=== PATIENT | female | born 1960 | race Caucasian/White ===

== ENCOUNTER → 2016-07-12 | Outpatient (CLI) | payer OTHER ==
--- NOTE | 2016-07-13 09:10 | MM ---
Reason for exam: screening (asymptomatic). Last mammogram was performed 9 months ago. History: Patient is postmenopausal. Family history of breast cancer in paternal grandmother at age 65. Physical Findings: A clinical breast exam by your physician is recommended on an annual basis and results should be correlated with mammographic findings. MG Screening Mammo w CAD Bilateral CC and MLO view(s) were taken. Prior study comparison: February 03, 2014, bilateral MG screening mammo w CAD. The breast tissue is heterogeneously dense. This may lower the sensitivity of mammography. There is no discrete abnormality. ASSESSMENT: Negative, BI-RAD 1 RECOMMENDATION: Routine screening mammogram of both breasts in 1 year.
== END | disposition home or self-care (01) ==
LOC: RADMAMWWP 11:01
PROVIDERS: ATTEND Obstetrics & Gynecology
DX: Z12.31 Encounter for screening mammogram for malignant neoplasm of breast (principal); Z80.3 Family history of malignant neoplasm of breast

== ENCOUNTER → 2016-08-09 | Outpatient (CLI) | payer OTHER ==
--- NOTE | 2016-08-09 15:51 | BD ---
EXAMINATION TYPE: MG DEXA axial skeleton. DATE OF EXAM: 08/09/2016 1:58 PM COMPARISON: NONE CLINICAL HISTORY: Height: 5 FT 1 1/2 IN Weight: 124 FRAX RISK QUESTIONS: Alcohol (3 or more units per day): YES Family History (Parent hip fracture): NO Glucocorticoids (More than 3mos): NO (Ex: prednisone, prednisolone, methylprednisolone, dexamethasone, and hydrocortisone). History of Fracture in Adulthood: NO Secondary Osteoporosis: 1. Type 1 Diabetes: NO 2. Hyperthyroidism: NO 3. Menopause before 45: YES 4. Malnutrition: NO 5. Chronic liver disease: NO Rheumatoid Arthritis: YES Current Tobacco Use: NO RISK FACTORS HISTORY OF: Drink Alcohol: SOCIAL Active: YES Postmenopausal woman: PARTIAL HYST AGE 45 WITH SYMPTOMS OF MENOPAUSE MEDICATIONS: Additional Medications: PLAQUENEL,CYMBALTA,ADIVAN Additional History: SJOGRENS DISEASE,FYBROMYALGIA EXAM MEASUREMENTS: Bone mineral densitometry was performed using the [employer] System. Bone mineral density as measured about the Lumbar spine is: ----- L1-L4(G/cm2): 1.104 T Score Values are as follows: ----- L2: -1.4 ----- L3: -0.4 ----- L4: -0.1 ----- L1-L4: -0.6 Bone mineral density has: Decreased -3.7% since study of: 2013 Bone mineral density about the R hip (g/cm2): 0.810 Bone mineral density about the L hip (g/cm2): 0.805 T Score values are as follows: -----R Neck: -1.6 -----L Neck: -1.7 -----R Intertrochanter: -0.8 -----L Intertrochanter: -0.7 Bone mineral density has: Increased 1.4% since study of: 2013 IMPRESSION: Osteopenia (T Score between -2.5 and -1 as noted by T score values There is slightly increased risk of fracture and the patient may be considered for treatment. Re-Screen 1-2 years. L2 AND BEN HIPS NOTE: T-SCORE=SD OF THE YOUNG ADULT MEAN.
== END ==
LOC: RADBDWWP 13:40
PROVIDERS: ATTEND Family Medicine
DX: M85.851 Other specified disorders of bone density and structure, right thigh (principal); M85.852 Other specified disorders of bone density and structure, left thigh; M85.88 Other specified disorders of bone density and structure, other site
CPT/HCPCS: 77080

== ENCOUNTER → 2017-07-17 | Outpatient (CLI) | payer OTHER ==
--- NOTE | 2017-07-17 18:02 | XR ---
Panorex HISTORY: K 11.5 Single Panorex view is submitted. Multiple teeth are no longer present. No fracture or dislocation. No radiopaque calculus. Maxillary s inuses show no definite inflammatory change. No definite periapical abscess. Some lucency noted adjac ent to the inferior molar posteriorly on the right. IMPRESSION: No definite calculus. CT scan may be of benefit.
--- NOTE | 2017-07-17 18:04 | XR ---
Mandible HISTORY: Ruth's duct calculus, Left-sided parotid gland removal 5 views of the mandible Bone mineralization is maintained. No fracture or dislocation. No definite abnormal calculus. Bone mi neralization is slightly reduced. IMPRESSION: No radiopaque calculus evident, consider CT.
== END | disposition home or self-care (01) ==
LOC: RADXRMAIN 13:43
PROVIDERS: ATTEND Otolaryngology
DX: K11.5 Sialolithiasis (principal)
CPT/HCPCS: 70110; 70355

== ENCOUNTER → 2017-11-29 | Outpatient (CLI) | payer BC ==
--- NOTE | 2017-12-06 15:49 | MM ---
Reason for exam: screening (asymptomatic). Last mammogram was performed 1 year and 5 months ago. History: Patient is postmenopausal. Family history of breast cancer in paternal grandmother at age 65. MG 3D Screening Mammo W/Cad Bilateral CC and MLO view(s) were taken. Prior study comparison: July 12, 2016, bilateral MG screening mammo w CAD. September 29, 2015, right breast MG 3d diag mammo w/cad RT. March 16, 2015, bilateral MG 3d diag mammo w/cad BEN. The breast tissue is heterogeneously dense. This may lower the sensitivity of mammography. No suspicious abnormality. No significant changes when compared with prior studies. ASSESSMENT: Negative, BI-RAD 1 RECOMMENDATION: Routine screening mammogram of both breasts in 1 year.
== END | disposition home or self-care (01) ==
LOC: RADMAMWWP 13:13
PROVIDERS: ATTEND Obstetrics & Gynecology
DX: Z12.31 Encounter for screening mammogram for malignant neoplasm of breast (principal)
CPT/HCPCS: 77063; 77067

== ENCOUNTER → 2019-01-17 | Outpatient (CLI) | payer OTHER ==
--- NOTE | 2019-01-19 13:20 | BD ---
EXAMINATION TYPE: Axial Bone Density DATE OF EXAM: 01/17/2019 COMPARISON: 08.09.2016 CLINICAL HISTORY: 58 YR OLD FEMALE....ICD-10 CODE: N95.1, M89.9 OSTEOPENIA Height: 62.2 Weight: 160 FRAX RISK QUESTIONS: Rheumatoid Arthritis: YES RISK FACTORS HISTORY OF: Postmenopausal woman: HYST AT AGE 45 YRS OLD, HORMONALLY AT 52 YRS OLD Poor Health: SHOGUNS DISEASE, FIBROMYALGIA Hyperparathyroidism: NO Adrenal Insufficiency: NO MEDICATIONS: Additional Medications: BP MEDS, CYMBALTA, STATIN FOR CHOLESTEROL, PAIN MEDS, Additional History: FIBROMYALGIA, SHOGREN DISEASE, HYPERTENSION, CHRONIC PAIN EXAM MEASUREMENTS: Bone mineral densitometry was performed using the [employer] System. Bone mineral density as measured about the Lumbar spine is: ----- L1-L4(G/cm2): 0.970 T Score Values are as follows: ----- L1: -1.4 ----- L2: -2.4 ----- L3: -1.2 ----- L4: -2.1 ----- L1-L4: -1.8 Bone mineral density has: Decreased -14.2% since study of: 08.09.2016 Bone mineral density about the R hip (g/cm2): 0.845 Bone mineral density about the L hip (g/cm2): 0.832 T Score values are as follows: -----R Neck: -1.6 -----L Neck: -1.8 -----R Total: -1.3 -----L Total: -1.4 Bone mineral density has: Decreased -1.5% since study of: 08.09.2016 FRAX%s: THERE IS A 10.5% CHANCE FOR A MAJOR OSTEOPOROTIC FX AND A 1.2% FOR HIP....PROBABILITY FOR F X IN 10 YRS TIME IMPRESSION: Osteopenia (T Score between -2.5 and -1). There is slightly increased risk of fracture and the patient may be considered for treatment. Re-Screen 2-5 years. NOTE: T-SCORE=SD OF THE YOUNG ADULT MEAN.
--- NOTE | 2019-01-20 12:34 | MM ---
Reason for exam: screening (asymptomatic). Last mammogram was performed 1 year and 2 months ago. History: Patient is postmenopausal. Family history of breast cancer in paternal grandmother at age 65. Physical Findings: A clinical breast exam by your physician is recommended on an annual basis and results should be correlated with mammographic findings. MG 3D Screening Mammo W/Cad Bilateral CC and MLO view(s) were taken. Prior study comparison: November 29, 2017, bilateral MG 3d screening mammo w/cad. July 12, 2016, bilateral MG screening mammo w CAD. The breast tissue is heterogeneously dense. This may lower the sensitivity of mammography. No suspicious abnormality. ASSESSMENT: Negative, BI-RAD 1 RECOMMENDATION: Routine screening mammogram of both breasts in 1 year.
== END | disposition home or self-care (01) ==
LOC: RADMAMWWP 12:12
PROVIDERS: ATTEND Obstetrics & Gynecology
DX: Z12.31 Encounter for screening mammogram for malignant neoplasm of breast (principal); M85.80 Other specified disorders of bone density and structure, unspecified site
CPT/HCPCS: 77063; 77067; 77080

== ENCOUNTER → 2020-01-17 | Outpatient (CLI) | payer OTHER ==
--- NOTE | 2020-01-18 01:11 | MR ---
EXAMINATION TYPE: MR ankle LT wo/w con DATE OF EXAM: 01/17/2020 COMPARISON: None HISTORY: Left ankle lump on anterior portion, marked area CONTRAST: Standard multiplanar, multisequence MRI departmental protocol utilizing 7 mL intravenous Gadavist chino olinium contrast. Multiplanar multiecho imaging of the left ankle was performed without and with IV contrast. The Achilles tendon is intact. Plantar fascia is intact. The medial and lateral flexor tendons of the ankle appear intact. Subtalar joint is normal. Ankle mortise is anatomic. Collateral ligaments appea r intact. I see no bony destructive process. There is no evidence of a fracture. There is a marker pl aced over the anterior ankle in the area of concern. There is slight increased subcutaneous fluid sig nal in the area of concern. No discrete mass seen. This measures 20 x 8 mm. There is rounded 11 mm ar ea of fluid signal at the anterior aspect of the talonavicular joint that is consistent with small sy novial cyst. This is adjacent to the talus. IMPRESSION: Small synovial cyst of the anterior talonavicular joint. Subcutaneous edema in the area of concern an terior to the talonavicular joint. No fracture. No evidence of ligamentous tear.
== END | disposition home or self-care (01) ==
LOC: RADMRIMAIN 10:32
PROVIDERS: ATTEND Podiatrist Foot & Ankle Surgery
DX: M71.372 Other bursal cyst, left ankle and foot (principal); M25.472 Effusion, left ankle
CPT/HCPCS: 73723; A9585

== ENCOUNTER → 2021-08-22 | Outpatient (CLI) | payer OTHER ==
--- NOTE | 2021-08-22 09:45 | BD ---
EXAMINATION TYPE: Axial Bone Density DATE OF EXAM: 08/22/2021 COMPARISON: 01.17.2019 CLINICAL HISTORY: 60 years year old Female. ICD-10 CODE: M85.88 disorder of bone Height: 61.8 Weight: 155 FRAX RISK QUESTIONS: Glucocorticoids (More than 3mos): ON AND OFF ONLY (Ex: prednisone, prednisolone, methylprednisolone, dexamethasone, and hydrocortisone). 5. Chronic liver disease: YES, PBC Rheumatoid Arthritis: YES RISK FACTORS HISTORY OF: Postmenopausal woman: 52 YRS Poor Health: CHRONIC PAIN Hyperparathyroidism: NO Adrenal Insufficiency: NO MEDICATIONS: Prednisone or other steroids: ON AND OFF FOR PAIN AND ILLNESS Additional Medications: BP MEDS, CYMBALTA, CHOLESTEROL MEDS, PAIN MEDS, PREDNISONE, Additional History: SHOGUNS DISEASE, FIBROMYALGIA, CHRONIC PAIN, HYPERTENSION, LIVER DISEASE PBC, EXAM MEASUREMENTS: Bone mineral densitometry was performed using the [employer] System. Bone mineral density as measured about the Lumbar spine is: ----- L1-L4(G/cm2): 0.958 T Score Values are as follows: ----- L1: -1.8 ----- L2: -2.7 ----- L3: -1.2 ----- L4: -2.3 ----- L1-L4: -1.9 Bone mineral density has: Decreased -1.4% since study of: 01.17.2019 Bone mineral density about the R hip (g/cm2): 0.794 Bone mineral density about the L hip (g/cm2): 0.814 T Score values are as follows: -----R Neck: -2.0 -----L Neck: -2.0 -----R Total: -1.7 -----L Total: -1.5 Bone mineral density has: Decreased -4.2% since study of: 01.17.2019 FRAX%s: The graph provided illustrates a 12.5% chance for a major osteoporotic fx and a 1.8% chance f or the hips probability for fx in 10 years time. IMPRESSION: Osteopenia NOTE: T-SCORE=SD OF THE YOUNG ADULT MEAN.
--- NOTE | 2021-08-23 10:08 | MM ---
Reason for exam: screening (asymptomatic). Last mammogram was performed 2 years and 7 months ago. History: Patient is postmenopausal. Family history of breast cancer in paternal grandmother at age 65. Physical Findings: A clinical breast exam by your physician is recommended on an annual basis and results should be correlated with mammographic findings. MG Screening Mammo w CAD Bilateral CC and MLO view(s) were taken. Prior study comparison: January 17, 2019, bilateral MG 3d screening mammo w/cad. November 29, 2017, bilateral MG 3d screening mammo w/cad. The breast tissue is heterogeneously dense. This may lower the sensitivity of mammography. There are benign appearing round calcifications bilaterally. There is no discrete abnormality. ASSESSMENT: Benign, BI-RAD 2 RECOMMENDATION: Routine screening mammogram of both breasts in 1 year.
== END | disposition home or self-care (01) ==
LOC: RADBDWWP 08:36
PROVIDERS: ATTEND Obstetrics & Gynecology
DX: Z12.31 Encounter for screening mammogram for malignant neoplasm of breast (principal); M85.88 Other specified disorders of bone density and structure, other site; Z80.3 Family history of malignant neoplasm of breast; Z78.0 Asymptomatic menopausal state
CPT/HCPCS: 77067; 77080

== ENCOUNTER 2022-08-15 14:15 | Emergency (ER) | payer OTHER ==
[2022-08-15 14:21] VITALS: TEMP 98.8
[2022-08-15] MEDS ORDERED: SODIUM CHLORIDE 0.9% 1,000 ML IV STA (15:44)
[2022-08-15] MEDS ORDERED: DICYCLOMINE 10 MG/ML 2 ML AMP IM STA (15:44)
[2022-08-15] MEDS ORDERED: PANTOPRAZOLE 40 MG/10 ML VIAL IVP STA (15:44)
--- NOTE | 2022-08-15 15:47 | ED ---
General Adult HPI - General Chief complaint: Abdominal Pain Stated complaint: GI Bleed Time Seen by Provider: 08/15/22 15:19 Source: patient, RN notes reviewed Mode of arrival: ambulatory Limitations: no limitations - History of Present Illness Initial comments: Patient is a pleasant [age]-year-old female presenting to the emergency department with concerns with abdominal discomfort. Onset of symptoms was last night. Patient did have nausea and vomiting however that has resolved. Patient did have diarrhea following this. Patient has had several episodes of bright red blood per rectum since that time, at least 2 or 3. Patient still has left s ided abdominal discomfort. No urinary symptoms. No fever. Patient did have a history of similar symptoms previously approximately 2 years ago associated with problems with her jejunum. Patient does have history of liver problems. - Related Data Home Medications Medication Instructions Recorded Confirmed Atorvastatin [Lipitor] 10 mg PO HS 06/24/21 08/15/22 DULoxetine HCL [Cymbalta] 30 mg PO BID 06/24/21 08/15/22 Metoprolol Tartrate [Lopressor] 25 mg PO BID 06/24/21 08/15/22 amLODIPine [Norvasc] 5 mg PO HS 06/24/21 08/15/22 ursodioL [Dee Forte] 500 mg PO BID 06/24/21 08/15/22 Erythromycin Ophth Oint (1 gm) 1 applic BOTH EYES BID 08/15/22 08/15/22 [Ilotycin Ophth Oint (1 gm)] diphenhydrAMINE HCL [Benadryl] 25 mg PO HS 08/15/22 08/15/22 Allergies Allergy/AdvReac Type Severity Reaction Status Date / Time Sulfa (Sulfonamide Allergy Red/Itching Verified 08/15/22 17:01 Antibiotics) sulfamethoxazole Allergy Red/Itching Verified 08/15/22 17:01 [From Bactrim] trimethoprim [From Bactrim] Allergy Red/Itching Verified 08/15/22 17:01 adhesive AdvReac Swelling Verified 08/15/22 17:01 Review of Systems ROS Statement: Those systems with pertinent positive or pertinent negative responses have been documented in the HPI. ROS Other: All systems not noted in ROS Statement are negative. Constitutional: Denies: fever Eyes: Denies: eye pain ENT: Denies: ear pain Respiratory: Denies: dyspnea Cardiovascular: Denies: chest pain Endocrine: Denies: fatigue Gastrointestinal: Reports: as per HPI, abdominal pain, nausea, vomiting, diarrhea, hematochezia Genitourinary: Denies: dysuria Musculoskeletal: Denies: back pain Skin: Denies: rash Neurological: Denies: weakness Past Medical History Past Medical History: Fibromyalgia, Hyperlipidemia, Liver Disease Additional Past Medical History / Comment(s): Recent issues with kidney function, liver disease A1PBC/autoimmune disease, sjogren's syndrome, elevated heart rate, past migraines. History of Any Multi-Drug Resistant Organisms: None Reported Past Surgical History: Cholecystectomy, Hysterectomy, Tonsillectomy, Tubal Ligation Additional Past Surgical History / Comment(s): Tubal ligation then reversal, paratid artery removal d/t inflammation, colonoscopy, rectocele. eye lids Past Anesthesia/Blood Transfusion Reactions: Postoperative Nausea & Vomiting (PONV) Past Psychological History: Depression Smoking Status: Never smoker Past Alcohol Use History: None Reported Past Drug Use History: None Reported - Past Family History Mother Family Medical History: Diabetes Mellitus, Hypertension Additional Family Medical History / Comment(s): Paratid gland issue Father Additional Family Medical History / Comment(s): Father had bleeding ulcer with surgical repair. General Exam Limitations: no limitations General appearance: alert, in no apparent distress Head exam: Present: normocephalic Eye exam: Present: normal appearance Neck exam: Present: normal inspection Respiratory exam: Present: normal lung sounds bilaterally Cardiovascular Exam: Present: regular rate, normal rhythm Expanded Peripheral pulses: 2+: Posterior Tibialis (R), Posterior Tibialis (L), Dorsalis Pedis (R), Dorsalis Pedis (L) GI/Abdominal exam: Present: soft. Absent: distended, tenderness, guarding, rebound, rigid Extremities exam: Present: normal inspection Neurological exam: Present: alert Psychiatric exam: Present: normal affect, normal mood Skin exam: Present: normal color Course Vital Signs 08/15/22 08/15/22 08/15/22 14:16 15:36 16:00 Temperature 98.8 F Pulse Rate 89 86 64 Respiratory 20 16 16 Rate Blood Pressure 129/90 143/95 125/94 O2 Sat by Pulse 96 98 97 Oximetry Medical Decision Making - Medical Decision Making Was pt. sent in by a medical professional or institution (, PA, [employer], urgent care, hospital, or halfway...) When possible be specific @ -No Did you speak to anyone other than the patient for history (EMS, parent, family, police, friend...)? What history was obtained from this source @ - is present and helps confirm history including history of previous event Did you review nursing and triage notes (agree or disagree)? Why? @ -I reviewed and agree with nursing and triage notes Were old charts reviewed (outside hosp., previous admission, EMS record, old EKG, old radiological studies, urgent care reports/EKG's, halfway records)? Report findings @ -No old charts were reviewed Differential Diagnosis (chest pain, altered mental status, abdominal pain women, abdominal pain men, vaginal bleeding, weakness, fever, dyspnea, syncope, headache, dizziness, GI bleed, back pain, seizure, CVA, palpatations, mental health)? @ -Differential Abdominal Pain Women: Appendicitis, Cholecystitis, diverticulosis, ischemic bowel, pancreatitis, hepatitis, UTI, gastroenteritis, AAA, incarcerated hernia, bowel obstruction, constipation, inflammatory bowel, hepatitis, peptic ulcer disease, splenic infarction, perforated viscus, vulvitis, ovarian torsion, PID, kidney stone, placenta abruption, this is not meant to be an all-inclusive list EKG interpreted by me (3pts min.). @ -As above X-rays interpreted by me (1pt min.). @ -None done CT interpreted by me (1pt min.). @ -Report reviewed U/S interpreted by me (1pt. min.). @ -None done What testing was considered but not performed or refused? (CT, X-rays, U/S, labs)? Why? @ -None What meds were considered but not given or refused? Why? @ -Considered further pain medication however patient does not feel necessary Did you discuss the management of the patient with other professionals (professionals i.e. , PA, [employer], lab, RT, psych nurse, high school social studies teacher, hvac technician residential, teacher, optics technical officer, porter sample case)? Give summary @ -No Was smoking cessation discussed for >3mins.? @ -No Was critical care preformed (if so, how long)? @ -No Were there social determinants of health that impacted care today? How? (Homelessness, low income, unemployed, alcoholism, drug addiction, transportation, low edu. Level, literacy, decrease access to med. care, longterm, rehab)? @ -No Was there de-escalation of care discussed even if they declined (Discuss DNR or withdrawal of care, Hospice)? DNR status @ -No What co-morbidities impacted this encounter? (DM, HTN, Smoking, COPD, CAD, Cancer, CVA, ARF, Chemo, Hep., AIDS, mental health diagnosis, sleep apnea, morbid obesity)? @ -None Was patient admitted / discharged? Hospital course, mention meds given and route, prescriptions, significant lab abnormalities, going to OR and other pe rtinent info. @ -Patient reevaluated and resting comfortably in bed, only mildly improved. Patient offered further medication however refuses. Patient and family are updated on results and need for follow-up. Patient states she does have an appointment next month with Dr. Cardoza however is advised to try to get earlier appointment and advised that she will should have follow-up colonoscopy. There are advised to return for increased bleeding or worsening symptoms Undiagnosed new problem with uncertain prognosis? @ -No Drug Therapy requiring intensive monitoring for toxicity (Heparin, Nitro, Insulin, Cardizem)? @ -No Were any procedures done? @ -No Diagnosis/symptom? @ -colitis Acute, or Chronic, or Acute on Chronic? @ -Acute Uncomplicated (without systemic symptoms) or Complicated (systemic symptoms)? @ -default Side effects of treatment? @ -No Exacerbation, Progression, or Severe Exacerbation? @ -No Poses a threat to life or bodily function? How? (Chest pain, [place], [place], pneumonia, PE, COPD, DKA, ARF, appy, cholecystitis, CVA, Diverticulitis, Homicidal, Suicidal, threat to staff... and all critical care pts) @ -No - Lab Data Result diagrams: 08/15/22 15:30 08/15/22 15:30 Lab Results 08/15/22 08/15/22 08/15/22 Range/Units 15:30 15:30 15:30 WBC 8.7 (3.8-10.6) k/uL RBC 5.51 H (3.80-5.40) m/uL Hgb 16.9 H (11.4-16.0) gm/dL Hct 49.9 H (34.0-46.0) % MCV 90.7 (80.0-100.0) fL MCH 30.6 (25.0-35.0) pg MCHC 33.8 (31.0-37.0) g/dL RDW 12.8 (11.5-15.5) % Plt Count 240 (150-450) k/uL MPV 7.8 Neutrophils % 51 % Lymphocytes % 39 % Monocytes % 6 % Eosinophils % 2 % Basophils % 1 % Neutrophils # 4.4 (1.3-7.7) k/uL Lymphocytes # 3.4 (1.0-4.8) k/uL Monocytes # 0.5 (0-1.0) k/uL Eosinophils # 0.2 (0-0.7) k/uL Basophils # 0.0 (0-0.2) k/uL PT 10.2 (9.0-12.0) sec INR 1.0 (<1.2) APTT 22.2 (22.0-30.0) sec Sodium 141 (137-145) mmol/L Potassium 3.9 (3.5-5.1) mmol/L Chloride 104 (98-107) mmol/L Carbon Dioxide 23 (22-30) mmol/L Anion Gap 14 mmol/L BUN 13 (7-17) mg/dL Creatinine 1.05 H (0.52-1.04) mg/dL Est GFR (CKD-EPI)AfAm 66 (>60 ml/min/1.73 sqM) Est GFR (CKD-EPI)NonAf 57 (>60 ml/min/1.73 sqM) Glucose 105 H (74-99) mg/dL Calcium 9.6 (8.4-10.2) mg/dL Total Bilirubin 1.2 (0.2-1.3) mg/dL AST 38 H (14-36) U/L ALT 23 (4-34) U/L Alkaline Phosphatase 189 H (38-126) U/L Total Protein 9.3 H (6.3-8.2) g/dL Albumin 4.9 (3.5-5.0) g/dL Amylase 61 (30-110) U/L Lipase 186 (23-300) U/L Disposition Clinical Impression: Colitis Disposition: HOME SELF-CARE Condition: Stable Instructions (If sedation given, give patient instructions): Colitis (ED) Additional Instructions: Please do follow-up with primary care physician in the next day or 2 for recheck. Please also follow-up with Dr. Cardoza or surgeon for colonoscopy. Return for increased pain, increased bleeding, vomiting, lightheadedness, source of breath, worsening symptoms or any other concerns. Is patient prescribed a controlled substance at d/c from ED?: No Referrals: Trevor Chadwick DO [Primary Care Provider] - 1-2 days Blanca Martinez MD [STAFF PHYSICIAN] - 1-2 days Time of Disposition: 18:17
[2022-08-15 16:01] LABS: Basophils % (A) 1 %; Eosinophils # (A) 0.2 k/uL (0-0.7); Eosinophils % (A) 2 %; HCT 49.9 % (34.0-46.0); HGB 16.9 gm/dL (11.4-16.0); Lymphocytes # (A) 3.4 k/uL (1.0-4.8); Lymphocytes % (A) 39 %; MCH 30.6 pg (25.0-35.0); MCHC 33.8 g/dL (31.0-37.0); MCV 90.7 fL (80.0-100.0); Mean Platelet Volume 7.8; Monocytes # (A) 0.5 k/uL (0-1.0); Monocytes % (A) 6 %; Neutrophils # (A) 4.4 k/uL (1.3-7.7); Neutrophils % (A) 51 %; Platelet Count 240 k/uL (150-450); RBC 5.51 m/uL (3.80-5.40); RDW 12.8 % (11.5-15.5); WBC 8.7 k/uL (3.8-10.6)
[2022-08-15 16:28] LABS: Partial Thromboplastin Time 22.2 sec (22.0-30.0); Prothrombin Time 10.2 sec (9.0-12.0)
[2022-08-15 16:48] LABS: Albumin 4.9 g/dL (3.5-5.0); Calcium 9.6 mg/dL (8.4-10.2); Potassium 3.9 mmol/L (3.5-5.1); Total Bilirubin 1.2 mg/dL (0.2-1.3); Total Protein 9.3 g/dL (6.3-8.2)
--- NOTE | 2022-08-15 17:42 | CT ---
EXAMINATION TYPE: CT abdomen pelvis w con CT DLP: 819.8 mGycm, Automated exposure control for dose reduction was used. DATE OF EXAM: 08/15/2022 5:17 PM COMPARISON: CT abdomen pelvis most recent from 06/24/2021 CLINICAL INDICATION:Female, 61 years old with history of abdominal pain; LLQ pain and GI bleeding TECHNIQUE: Axial CT of the abdomen and pelvis. Sagittal and coronal reformats were created on a [employer] workstation. Contrast used:80 mL of Isovue 300 with IV Contrast, Oral contrast used: without Oral Contrast FINDINGS: LOWER CHEST: Unremarkable ABDOMEN LIVER: Unremarkable GALLBLADDER AND BILE DUCTS: Gallbladder is surgically absent with mild intrahepatic and extra hepatic biliary dilatation likely physiologic and a postcholecystectomy change. No evidence of choledocholit hiasis. PANCREAS: Unremarkable. SPLEEN: Unremarkable. ADRENAL GLANDS: Unremarkable. KIDNEYS AND URETERS: No evidence of hydronephrosis or renal calculus. The ureters are unremarkable. PELVIS BLADDER: Unremarkable REPRODUCTIVE: The uterus is surgically absent. ABDOMEN & PELVIS STOMACH AND BOWEL: No evidence of bowel obstruction. Short segment colitis involving the distal trans verse colon and extending to the proximal descending colon ch measuring up to 10 mm. No evidence o f organizing fluid collection or evidence of perforation. At this time some adjacent prominent lymph nodes are present and felt to be there on prior. PERITONEUM/RETROPERITONEUM: No evidence of pneumoperitoneum or free fluid. VASCULATURE: No evidence of aortic aneurysm. Scattered atherosclerosis of the arterial vasculature. MUSCULOSKELETAL: No acute osseous abnormalities LYMPH NODES: No gross evidence for lymphadenopathy. SOFT TISSUE/ABDOMINAL WALL: Umbilical hernia IMPRESSION: Short segment of colitis involving the splenic flexure, distal transverse colon and proximal descendi ng colon. No evidence of perforation or organizing fluid collection. Follow-up colonoscopy is recomme nded after resolution of symptoms if not recently performed.
[2022-08-15 18:17] VITALS: RESP 16
[2022-08-15] MEDS ORDERED: ACET/COD 300 MG/30 MG STARTER PACK 6 TAB BTL PO STA (18:18)
[2022-08-15 18:31] VITALS: BP 118/60; PULSE 68
== END 2022-08-15 18:31 | disposition home or self-care (01) ==
LOC: EC 14:15
DX: K52.9 Noninfective gastroenteritis and colitis, unspecified (principal); E78.5 Hyperlipidemia, unspecified; F32.A Depression, unspecified; M79.7 Fibromyalgia; Z79.899 Other long term (current) drug therapy; Z88.1 Allergy status to other antibiotic agents; Z88.2 Allergy status to sulfonamides; Z91.048 Other nonmedicinal substance allergy status; Z90.49 Acquired absence of other specified parts of digestive tract
CPT/HCPCS: 36415; 80053; 82150; 83690; 85025; 85610; 85730; 74177; 99284; 96374; 96361; 96372; J0500; C9113; Q9967

== ENCOUNTER → 2023-01-10 | Outpatient (CLI) | payer OTHER ==
[2023-01-10 16:39] LABS: ALT 21 U/L (8-44); AST 32 U/L (13-35); Albumin 4.5 d/dL (3.8-4.9); Albumin/Globulin Ratio 1.41 Ratio (1.60-3.17); Alkaline Phosphatase 198 U/L (41-126); BUN/Creat Ratio 11.36 Ratio (12.00-20.00); Basophils # (A) 0.02 X 10*3/uL (0.00-0.10); Basophils % (A) 0.5 %; Blood Urea Nitrogen 12.5 mg/dL (9.0-27.0); Calcium 9.5 mg/dL (8.7-10.3); Carbon Dioxide 26.6 mmol/L (21.6-31.8); Chloride 104 mmol/L (96-109); Eosinophils # (A) 0.16 X 10*3/uL (0.04-0.35); Eosinophils % (A) 3.7 %; Globulin 3.2 d/dL (1.6-3.3); Glucose 94 mg/dL (70-110); HCT 41.9 % (37.2-46.3); HGB 13.9 d/dL (12.0-15.0); Lymphocytes # (A) 2.11 X 10*3/uL (0.90-5.00); Lymphocytes % (A) 49.1 %; MCH 31.2 pg (27.0-32.0); MCHC 33.2 d/dL (32.0-37.0); MCV 93.9 FL (80.0-97.0); Mean Platelet Volume 9.9 FL (9.5-12.2); Monocytes # (A) 0.45 X 10*3/uL (0.20-1.00); Monocytes % (A) 10.5 %; NRBC Per 100 WBC 0 X 10*3/uL (0.00-0.01); Neutrophils # (A) 1.55 X 10*3/uL (1.80-7.70); Platelet Count 185 X 10*3/uL (140-440); Potassium 4.3 mmol/L (3.5-5.5); RBC 4.46 X 10*6/uL (4.10-5.20); RDW 12.8 % (11.5-14.5); Sodium 142 mmol/L (135-145); Total Bilirubin 0.8 mg/dL (0.3-1.2); Total Protein 7.7 d/dL (6.2-8.2)
== END | disposition home or self-care (01) ==
LOC: LABWHC1 11:42
PROVIDERS: ATTEND Internal Medicine Gastroenterology
DX: K74.3 Primary biliary cirrhosis (principal)
CPT/HCPCS: 36415; 80053; 85025

== ENCOUNTER → 2023-08-27 | Outpatient (CLI) | payer OTHER ==
--- NOTE | 2023-08-29 18:04 | MM ---
Reason for Exam: Screening (asymptomatic). Last mammogram was performed 2 year(s) and 0 month(s) ago. Patient History: Menarche at age 16. First Full-Term at age 17. Hysterectomy at age 44. Postmenopausal. Paternal grandmother had breast cancer, age 65. Risk Values: Nellie 5 year model risk: 1.0%. NCI Lifetime model risk: 4.6%. Prior Study Comparison: 11/29/2017 Bilateral Screening Mammogram, [facility]. 01/17/2019 Bilateral Screening Mammogram, [facility]. 08/22/2021 Bilateral Screening Mammogram, [facility]. Tissue Density: The breasts are heterogeneously dense, which may obscure small masses. Findings: Analyzed By CAD. There is no suspicious group of microcalcifications or new suspicious mass in either breast. Overall Assessment: Negative, BI-RAD 1 Management: Screening Mammogram of both breasts in 1 year. . Patient should continue monthly self-breast exams. A clinical breast exam by your physician is recommended on an annual basis. This exam should not preclude additional follow-up of suspicious palpable abnormalities. Note on Nellie scores and lifetime risk: 1. A Nellie score greater than 3% is considered moderate risk. If this is the case, consider specialist referral to assess eligibility for a risk reducing agent. 2. If overall lifetime risk for the development of breast cancer is 20% or higher, the patient may qualify for future screening with alternating mammogram and breast MRI. Electronically signed and approved by: Cheng Haider M.D. Radiologist
== END | disposition home or self-care (01) ==
LOC: RADMAMWWP 13:56
PROVIDERS: ATTEND Family Medicine
DX: Z12.31 Encounter for screening mammogram for malignant neoplasm of breast (principal); Z80.3 Family history of malignant neoplasm of breast; Z78.0 Asymptomatic menopausal state
CPT/HCPCS: 77067

== ENCOUNTER → 2024-07-28 | Outpatient (CLI) | payer OTHER ==
[2024-07-28 10:20] LABS: Basophils # (A) 0.03 X 10*3/uL (0.00-0.10); Basophils % (A) 0.7 %; Eosinophils # (A) 0.15 X 10*3/uL (0.04-0.35); Eosinophils % (A) 3.5 %; HCT 47.8 % (37.2-46.3); HGB 15.9 g/dL (12.0-15.0); Lymphocytes # (A) 2.02 X 10*3/uL (0.90-5.00); Lymphocytes % (A) 47.5 %; MCH 30.6 pg (27.0-32.0); MCHC 33.3 g/dL (32.0-37.0); MCV 92.1 FL (80.0-97.0); Mean Platelet Volume 9.5 FL (9.5-12.2); Monocytes # (A) 0.59 X 10*3/uL (0.20-1.00); Monocytes % (A) 13.9 %; NRBC Per 100 WBC 0 X 10*3/uL (0.00-0.01); Neutrophils # (A) 1.45 X 10*3/uL (1.80-7.70); Neutrophils % (A) 34.2 %; Platelet Count 174 X 10*3/uL (140-440); RBC 5.19 X 10*6/uL (4.10-5.20); RDW 12.7 % (11.5-14.5); WBC 4.25 X 10*3/uL (4.50-10.00)
[2024-07-28 10:39] LABS: BUN/Creat Ratio 9.36 Ratio (12.00-20.00); Blood Urea Nitrogen 10.3 mg/dL (9.0-27.0); Carbon Dioxide 27.8 mmol/L (21.6-31.8); Chloride 104 mmol/L (96-109); Glucose 98 mg/dL (70-110); Sodium 140 mmol/L (135-145)
[2024-07-28 10:40] LABS: ALT 28 U/L (8-44); AST 35 U/L (13-35); Albumin 4.3 g/dL (3.8-4.9); Albumin/Globulin Ratio 1.34 Ratio (1.60-3.17); Alkaline Phosphatase 175 U/L (41-126); Calcium 9.6 mg/dL (8.7-10.3); Globulin 3.2 g/dL (1.6-3.3); Total Bilirubin 0.8 mg/dL (0.3-1.2); Total Protein 7.5 g/dL (6.2-8.2)
== END | disposition home or self-care (01) ==
LOC: LABWHC1 07:51
PROVIDERS: ATTEND Nurse Practitioner Family
DX: K74.3 Primary biliary cirrhosis (principal)
CPT/HCPCS: 36415; 80053; 85025

== ENCOUNTER → 2024-08-28 | Outpatient (CLI) | payer OTHER ==
--- NOTE | 2024-08-29 12:33 | MM ---
Reason for Exam: Screening (asymptomatic). Last screening mammogram was performed 12 month(s) ago. Patient History: Menarche at age 16. First Full-Term at age 17. Hysterectomy at age 44. Postmenopausal. Paternal grandmother had breast cancer, age 65. Risk Values: Nellie 5 year model risk: 1.0%. NCI Lifetime model risk: 4.4%. Prior Study Comparison: 01/17/2019 Bilateral Screening Mammogram, [facility]. 08/22/2021 Bilateral Screening Mammogram, [facility]. 08/27/2023 Bilateral MG screening mammo w CAD, [facility]. Tissue Density: The breasts are heterogeneously dense, which may obscure small masses. Findings: Analyzed By CAD. Right breast: There is no suspicious group of microcalcifications or new suspicious mass. Left breast: There is no suspicious group of microcalcifications or new suspicious mass. Overall Assessment: Negative, BI-RAD 1 Management: Screening Mammogram of both breasts in [address] [facility] will attempt to contact patient to return for supplemental views and ultrasound if indicated. Patient should continue monthly self-breast exams. A clinical breast exam by your physician is recommended on an annual basis. This exam should not preclude additional follow-up of suspicious palpable abnormalities. Note on Nellie scores and lifetime risk: 1. A Nellie score greater than 3% is considered moderate risk. If this is the case, consider specialist referral to assess eligibility for a risk reducing agent. 2. If overall lifetime risk for the development of breast cancer is 20% or higher, the patient may qualify for future screening with alternating mammogram and breast MRI. [facility], , 08/29/2024 11:21 AM. Electronically signed and approved by: Kamran Farris DO
== END | disposition home or self-care (01) ==
LOC: RADMAMWWP 16:21
PROVIDERS: ATTEND Family Medicine
DX: Z12.31 Encounter for screening mammogram for malignant neoplasm of breast (principal); R92.333 Mammographic heterogeneous density, bilateral breasts; Z78.0 Asymptomatic menopausal state; Z80.3 Family history of malignant neoplasm of breast
CPT/HCPCS: 77063; 77067